=== PATIENT | female | born 1970 | race African-American/Black ===

== ENCOUNTER 2021-10-27 18:15 | Emergency (ER) | payer SELFPAY ==
[~2021-10-27] VITALS: Ht 152.4 cm; Wt 68.0 kg
[2021-10-27] MEDS ORDERED: IV NORMAL SALINE 1000ML BAG 1,000 ML IV ONE (18:30)
--- NOTE | 2021-10-27 18:33 | ED.ADGEN ---
General Adult EDM: Chief Complaint: ALLERGIC REACTION HPI: HPI: Patient is a 51 year old female brought in by EMS for allergic reaction. Patient states that she had taken an Aleve about 15 to 20 minutes before having itching on her palms and then wrapped it into hives and itching on her whole body. When EMS arrived she stated that she was having some difficulty swallowing and shortness of breath. They gave 50 mg IM Benadryl and got to the ambulance and gave 100 mcg of epinephrine IM at 1753. Patient symptoms started to improve over way to the hospital. Patient states that she had had allergic reactions to Advil in the past but not as severe. 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 States she has EpiPen's but she was afraid to use them because they are . Has an allergy to penicillin, Lovenox, coconut extract. She states that the time she has some mild itching but symptoms have mostly resolved otherwise. Denies any throat swelling or scratching on evaluation Review of Systems: Review of Systems: All other systems within normal limits except for as noted in the HPI Current Medications: Current Medications Medications (Trade) Dose Ordered Sig/Shivam Start Time Stop Time Status Last Admin Dose Admin Dexamethasone Sodium Phosphate (Decadron) 4 mg STK-MED ONCE 10/27/21 18:43 10/27/21 18:43 DC Famotidine (Pepcid Vial) 20 mg 1X ONCE 10/27/21 19:15 10/27/21 19:16 DC 10/27/21 18:47 20 MG Sodium Chloride 1,000 ml @ 1,000 mls/hr 1X ONCE 10/27/21 18:30 10/27/21 19:29 DC 10/27/21 18:42 1,000 MLS/HR Allergies: Allergies: Allergies Coded Allergies Type Severity Reaction Last Updated Verified Penicillins Allergy Unknown 10/27/21 Yes coconut Allergy Unknown 10/27/21 Yes enoxaparin Allergy Unknown 10/27/21 Yes ibuprofen Allergy Unknown 10/27/21 Yes Physical Exam: PE: Constitutional: Well developed, well nourished, no acute distress, non-toxic appearance. [] HENT: Normocephalic, atraumatic, bilateral external ears normal, nose normal. No swelling of tongue and no teeth indentations on tongue. Posterior pharynx patent [] Eyes: PERRLA, conjunctiva normal, no discharge. [] Neck: No rigidity, supple, no stridor. [] Cardiovascular: Regular rate and rhythm, brisk cap refill [] Lungs & Thorax: Non labored symmetric respirations, no tachypnea or respiratory distress [] Abdomen: Soft, nondistended. Skin: Warm, diffuse redness, no discrete hives. Areas of evidence of scratching on bilateral inner forearm Back: Unremarkable Extremities: No deformities, range of motion grossly intact, no lower extremity edema [] Neurologic: Alert and oriented X 3, no focal deficits noted. [] Psychologic: Affect normal, judgement normal, mood normal. [] Current Patient Data: Vital Signs: Vital Signs Date Time Temp Pulse Resp B/P (MAP) Pulse Ox O2 Delivery O2 Flow Rate FiO2 10/27/21 18:15 97.9 83 16 123/76 (92) 98 Room Air 97.9 EKG: EKG: [] Heart Score: C/O Chest Pain: No Risk Factors: Risk Factors: DM, Current or recent (<one month) smoker, HTN, HLP, family history of CAD, obesity. Risk Scores: Score 0 - 3: 2.5% MACE over next 6 weeks - Discharge Home Score 4 - 6: 20.3% MACE over next 6 weeks - Admit for Clinical Observation Score 7 - 10: 72.7% MACE over next 6 weeks - Early Invasive Strategies Radiology/Procedures: Radiology/Procedures: [] Course & Med Decision Making: Course & Med Decision Making Patient observed in emergency department about 4 hours post epinephrine injection. Without return of symptoms. Consulted pharmacist about sending patient home with an EpiPen, they state they do not have any EpiPen's in the pharmacy. Patient discharged with prescription and restrict return precautions. Patient has EpiPen's, advised patient that since return to go ahead and try using them while waiting for EMS. Dragon Disclaimer: Dragon Disclaimer: This electronic medical record was generated, in whole or in part, using a voice recognition dictation system. Departure Departure Impression: Primary Impression: Anaphylactic reaction Disposition: HOME / SELF CARE / HOMELESS Condition: STABLE Patient Instructions: Epinephrine injection (Auto-injector) Scripts Epinephrine (EPIPEN 2-EMELI) 0.3 Mg/0.3 Ml Auto.injct 1 SYR IM ONCE PRN for ANAPHYLAXIS for 1 Day, #1 PACKET 0 Refills Prov: JEANNINE ARROYO MD 10/27/21 Famotidine (FAMOTIDINE) 40 Mg Tablet 40 MG PO HS for antacid for 10 Days, #10 TAB Prov: JEANNINE ARROYO MD 10/27/21 Diphenhydramine Hcl (DIPHENHYDRAMINE HCL) 50 Mg Capsule 50 MG PO PRN Q4-6HRS PRN for ITCHING for 10 Days, #30 CAP Prov: JEANNINE ARROYO MD 10/27/21 JEANNINE ARROYO MD Oct 27, 2021 18:33
[2021-10-27] MEDS ORDERED: DEXAMETHASONE SOD PHOS 4 MG/ML VIAL ONE (18:43)
[2021-10-27] MEDS ORDERED: FAMOTIDINE 20 MG/2 ML VIAL IVP ONE (19:15)
[2021-10-27] MEDS ORDERED: DEXAMETHASONE SOD PHOS 20 MG/5 ML VIAL. IV ONE (19:15)
[2021-10-27 20:45] VITALS: BP 97/55
[2021-10-27] MEDS ORDERED: EPIPEN 2-P0.3 MG/0.3 IM (22:11)
[2021-10-27] MEDS ORDERED: DIPH50CA16 PO (22:11)
[2021-10-27] MEDS ORDERED: FAMO40TA4 PO (22:11)
== END 2021-10-27 22:36 | disposition home or self-care (01) ==
LOC: ER 18:15
DX: T78.2XXA Anaphylactic shock, unspecified, initial encounter (principal); R13.10 Dysphagia, unspecified; R06.02 Shortness of breath; Z88.0 Allergy status to penicillin; Z91.018 Allergy to other foods; Z88.8 Allergy status to other drugs, medicaments and biological substances
CPT/HCPCS: 96361; 96374; 96375; 99285; J1100; J3490; J7030